=== PATIENT | female | born 1995 | race Caucasian/White ===

== ENCOUNTER → 2017-05-08 | Outpatient (CLI) | payer BC ==
--- NOTE | 2017-05-09 08:34 | USB ---
Reason for exam: clinical finding. Indicated problem(s): lump or thickening in both breasts. Physical Findings: Nurse Summary: Patient states doctor felt many lumps, discontinued mammogram per Dr. Grant (nurse kp). US Breast BILAT Right breast ultrasound includes all four quadrants, the retroareolar region and axilla. Finding demonstrates no cystic or solid lesion seen. Left breast ultrasound includes all four quadrants, the retroareolar region and axilla. Finding demonstrates a 0.6 x 0.3 x 0.6cm cystic lesion at 2 o'clock, benign. Very dense tissues are present bilaterally. No other solid or cystic lesion is seen. These results were verbally communicated with the patient and result sheet given to the patient on 05/08/17. ASSESSMENT: Benign, BI-RAD 2 RECOMMENDATION: Routine screening mammogram of both breasts at age 40. (unless clinical indication to start sooner) Manage on a clinical basis with regard to any suspicious palpable sites.
== END | disposition home or self-care (01) ==
LOC: RADMAMWWP 14:49
PROVIDERS: ATTEND Internal Medicine
DX: N63.10 Unspecified lump in the right breast, unspecified quadrant (principal); N63.20 Unspecified lump in the left breast, unspecified quadrant

== ENCOUNTER → 2017-06-11 | Outpatient (CLI) | payer BC ==
[2017-06-11 16:58] LABS: Basophils % (A) 0 %; Eosinophils % (A) 0 %; HCT 41.8 % (34.0-46.0); Lymphocytes # (A) 1.6 k/uL (1.0-4.8); Lymphocytes % (A) 22 %; MCH 30.4 pg (25.0-35.0); MCHC 33.5 g/dL (31.0-37.0); MCV 90.8 fL (80.0-100.0); Mean Platelet Volume 8.3; Monocytes # (A) 0.6 k/uL (0-1.0); Monocytes % (A) 8 %; Neutrophils # (A) 4.8 k/uL (1.3-7.7); Neutrophils % (A) 67 %; Platelet Count 160 k/uL (150-450); RDW 12.8 % (11.5-15.5); WBC 7.2 k/uL (3.8-10.6)
== END | disposition home or self-care (01) ==
LOC: PEDOP 16:11
PROVIDERS: ATTEND Internal Medicine
DX: J12.9 Viral pneumonia, unspecified (principal); J06.9 Acute upper respiratory infection, unspecified
CPT/HCPCS: 36415; 85025; 87081; 87430; 87502; 99212

== ENCOUNTER → 2017-07-17 | Outpatient (CLI) | payer BC ==
[2017-07-17 09:53] LABS: Basophils % (A) 0 %; Eosinophils % (A) 0 %; HCT 39.7 % (34.0-46.0); HGB 13.3 gm/dL (11.4-16.0); Lymphocytes # (A) 1.4 k/uL (1.0-4.8); Lymphocytes % (A) 16 %; MCHC 33.5 g/dL (31.0-37.0); MCV 89.5 fL (80.0-100.0); Mean Platelet Volume 9.1; Monocytes # (A) 0.3 k/uL (0-1.0); Monocytes % (A) 3 %; Neutrophils # (A) 7.2 k/uL (1.3-7.7); Neutrophils % (A) 80 %; Platelet Count 165 k/uL (150-450); RBC 4.44 m/uL (3.80-5.40); RDW 12.6 % (11.5-15.5)
[2017-07-17 09:58] LABS: ALT 19 U/L (9-52); AST 17 U/L (14-36); Albumin 4.3 g/dL (3.5-5.0); Alkaline Phosphatase 50 U/L (38-126); Anion Gap 12 mmol/L; Blood Urea Nitrogen 7 mg/dL (7-17); Calcium 9.4 mg/dL (8.4-10.2); Carbon Dioxide 24 mmol/L (22-30); Chloride 105 mmol/L (98-107); Cholesterol 173 mg/dL (<200); Creatine Kinase 49 U/L (30-135); Glucose 90 mg/dL (74-99); HDL Cholesterol 53 mg/dL (40-60); LDL Cholesterol,Calculated 102 mg/dL (0-99); Potassium 3.9 mmol/L (3.5-5.1); Sodium 141 mmol/L (137-145); Total Bilirubin 0.6 mg/dL (0.2-1.3); Triglycerides 92 mg/dL (<150)
[2017-07-17 10:15] LABS: HCG,Quantitative Serum <2.4 mIU/mL; T4, Free (Free Thyroxine) 0.99 ng/dL (0.78-2.19)
[2017-07-17 10:36] LABS: Erythrocyte Sedimentation Rate 3 mm/hr (0-20)
[2017-07-17 11:46] LABS: C Reactive Protein <5.0 mg/L (<10.0)
== END | disposition home or self-care (01) ==
LOC: LABWHC1 09:18
PROVIDERS: ATTEND Obstetrics & Gynecology
DX: E78.5 Hyperlipidemia, unspecified (principal); E55.9 Vitamin D deficiency, unspecified; E03.9 Hypothyroidism, unspecified; E87.8 Other disorders of electrolyte and fluid balance, not elsewhere classified; N92.6 Irregular menstruation, unspecified
CPT/HCPCS: 36415; 80053; 80061; 82306; 82550; 84439; 84443; 84702; 85025; 85652; 86140

== ENCOUNTER → 2018-11-18 | Outpatient (CLI) | payer BC ==
[2018-11-18 14:44] LABS: Basophils % (A) 0 %; Eosinophils # (A) 0.1 k/uL (0-0.7); Eosinophils % (A) 1 %; HCT 40.5 % (34.0-46.0); HGB 13.7 gm/dL (11.4-16.0); Lymphocytes # (A) 2.5 k/uL (1.0-4.8); Lymphocytes % (A) 36 %; MCH 31.5 pg (25.0-35.0); MCHC 33.8 g/dL (31.0-37.0); MCV 93.4 fL (80.0-100.0); Mean Platelet Volume 8.3; Monocytes # (A) 0.3 k/uL (0-1.0); Monocytes % (A) 5 %; Neutrophils % (A) 57 %; Platelet Count 208 k/uL (150-450); RBC 4.34 m/uL (3.80-5.40); RDW 12.3 % (11.5-15.5)
== END | disposition home or self-care (01) ==
LOC: LABPAT 13:46
PROVIDERS: ATTEND Obstetrics & Gynecology
DX: Z01.812 Encounter for preprocedural laboratory examination (principal)
CPT/HCPCS: 36415; 85025

== ENCOUNTER 2018-11-24 06:31 | Day surgery (SDC) | payer BC ==
[2018-11-19 09:08] VITALS: BMI 24.7
[~2018-11-24 06:31] MED LIST: DEXAMETHASONE SOD PHOSPHATE 10 MG/ML 1 ML VIAL IV ONE; HYDROmorphone 0.5 MG/0.5 ML SYRINGE IVP PRN; LACTATED RINGERS 1,000 ML IV SCH; LIDOCAINE 1% 20 ML VIAL (10MG/ML) FOR IV START INTRADERMA PRN; ONDANSETRON 4 MG/2 ML VIAL IVP ONE; Pre Op ABX Message 1 EACH MISC MISCELLANE ONE; SCOPOLAMINE 1.5MG/72HR PATCH TRANSDERM ONE
--- NOTE | 2018-11-24 07:00 | P.HPOB ---
History of Present Illness H&P Date: 11/24/18 Chief Complaint: hypertrophic labia 23 year old G0 presents for labialplasty due to hypertrophic labia. Review of Systems All systems: negative Constitutional: Denies chills, Denies fever Eyes: denies blurred vision, denies pain Ears, nose, mouth and throat: Denies headache, Denies sore throat Cardiovascular: Denies chest pain, Denies shortness of breath Respiratory: Denies cough Gastrointestinal: Denies abdominal pain, Denies diarrhea, Denies nausea, Denies vomiting Genitourinary: Denies dysuria, Denies hematuria Musculoskeletal: Denies myalgias Integumentary: Denies pruritus, Denies rash Neurological: Denies numbness, Denies weakness Psychiatric: Denies anxiety, Denies depression Endocrine: Denies fatigue, Denies weight change Past Medical History Past Medical History: No Reported History History of Any Multi-Drug Resistant Organisms: None Reported Past Surgical History: Appendectomy Past Anesthesia/Blood Transfusion Reactions: No Reported Reaction Past Psychological History: Anxiety Smoking Status: Never smoker Past Alcohol Use History: Occasional Past Drug Use History: None Reported - Past Family History Mother Family Medical History: No Reported History Medications and Allergies Home Medications Medication Instructions Recorded Confirmed Type Nf-Zoloft Dose Unknown 1 tab PO HS 11/19/18 11/19/18 History Allergies Allergy/AdvReac Type Severity Reaction Status Date / Time ibuprofen [From Advil] Allergy Swelling Verified 11/24/18 06:42 Exam Osteopathic Statement: *. No significant issues noted on an osteopathic structural exam other than those noted in the History and Physical/Consult. HEart: RRR Lungs: CTAB Abdomen: soft, nontender Extremeties: neg tanner's Assessment and Plan (1) Hypertrophy of labia Current Visit: Yes Status: Acute Code(s): N90.60 - UNSPECIFIED HYPERTROPHY OF VULVA SNOMED Code(s): 17756579 Plan: 1. labialplasty
[2018-11-24 07:08] VITALS: RESP 16
[2018-11-24 07:09] LABS: Glucose,Whole Blood 87 mg/dL (75-99)
[2018-11-24] MEDS ORDERED: MIDAZOLAM 2 MG/2 ML VIAL ONE (07:21)
[2018-11-24] MEDS ORDERED: LIDOCAINE 1% INJ 10MG/ML (20 ML MDV) ONE (07:21)
[2018-11-24] MEDS ORDERED: KETOROLAC 30 MG/ML 1 ML VIAL ONE (07:21)
[2018-11-24] MEDS ORDERED: PROPOFOL 10 MG/ML 20 ML VIAL IV ONE (07:21)
[2018-11-24] MEDS ORDERED: fentaNYL (PF) 50 MCG/ML 2 ML AMP ONE (07:21)
[2018-11-24] MEDS ORDERED: LIDOCAINE 1%-EPI 1:100,000 30 ML VIAL SQ ONE ×2 (07:43)
[2018-11-24] MEDS ORDERED: LACTATED RINGERS 1,000 ML IV ONE ×2 (07:55)
[2018-11-24 08:12] VITALS: TEMP 97
--- NOTE | 2018-11-24 08:13 | P.OP ---
Date of Procedure: 11/24/18 Preoperative Diagnosis: 1. Labial hypertrophy Postoperative Diagnosis: 1. Labial hypertrophy Procedure(s) Performed: Labioplasty Anesthesia: MAC Surgeon: Karen Osorio Estimated Blood Loss (ml): 2 IV fluids (ml): 900 Pathology: other (Portion of each labia) Condition: stable Disposition: PACU Description of Procedure: Patient is taken the operating room where general anesthesia was obtained without difficulty. She is prepped draped in normal sterile fashion dorsal lithotomy position, legs placed in candycane stirrups. First a marked triangular area along each peak of the labia. 1% lidocaine with epinephrine was injected along these lines. I then used the 10 blade to cut off these marked areas. 3-0 Vicryl was used to bring the edges back together of both labia in a running manner. Hemostasis was assured. Patient tolerated procedure well, sponge and instrument counts correct 2. She was taken to recovery in stable condition.
[2018-11-24 09:17] VITALS: BP 117/59; PULSE 66
== END 2018-11-24 09:23 | disposition home or self-care (01) ==
LOC: OR 06:31
PROVIDERS: ATTEND Obstetrics & Gynecology
DX: N90.60 Unspecified hypertrophy of vulva (principal); F41.9 Anxiety disorder, unspecified; Z79.899 Other long term (current) drug therapy; Z88.6 Allergy status to analgesic agent; Z90.49 Acquired absence of other specified parts of digestive tract
CPT/HCPCS: 56620; 88302; 81025; J2250; J1100; J2405; J2001; J3010; J1885; J2704

== ENCOUNTER → 2022-09-24 | Outpatient (CLI) | payer BC ==
[2022-09-24 17:39] LABS: HCT 42.4 % (37.2-46.3); HGB 13.8 d/dL (12.0-15.0); MCH 30.3 pg (27.0-32.0); MCHC 32.5 d/dL (32.0-37.0); Mean Platelet Volume 12.3 FL (9.5-12.2); NRBC Per 100 WBC 0 X 10*3/uL (0.00-0.01); Platelet Count 195 X 10*3/uL (140-440); RBC 4.56 X 10*6/uL (4.10-5.20); RDW 12.2 % (11.5-14.5); WBC 5.96 X 10*3/uL (4.50-10.00)
[2022-09-24 17:40] LABS: Basophils # (A) 0.02 X 10*3/uL (0.00-0.10); Basophils % (A) 0.3 %; Eosinophils # (A) 0.07 X 10*3/uL (0.04-0.35); Eosinophils % (A) 1.2 %; Lymphocytes # (A) 1.83 X 10*3/uL (0.90-5.00); Lymphocytes % (A) 30.7 %; Monocytes # (A) 0.36 X 10*3/uL (0.20-1.00); Neutrophils # (A) 3.66 X 10*3/uL (1.80-7.70); Neutrophils % (A) 61.5 %
[2022-09-24 18:02] LABS: Erythrocyte Sedimentation Rate 2 mm/Hr (0-20)
[2022-09-25 02:18] LABS: ALT 14 U/L (8-44); AST 19 U/L (13-35); Albumin 4.5 d/dL (3.8-4.9); Albumin/Globulin Ratio 1.88 Ratio (1.60-3.17); Alkaline Phosphatase 49 U/L (41-126); BUN/Creat Ratio 12.57 Ratio (12.00-20.00); Blood Urea Nitrogen 8.8 mg/dL (9.0-27.0); C Reactive Protein <0.30 mg/dL (0.00-0.80); Calcium 9.4 mg/dL (8.7-10.3); Carbon Dioxide 24.8 mmol/L (21.6-31.8); Chloride 104 mmol/L (96-109); Chol/HDL Ratio 2.65 Ratio; Creatine Kinase 80 U/L (26-186); Follicle Stimulating Hormone 4.1 mIU/mL; Globulin 2.4 d/dL (1.6-3.3); Glucose 86 mg/dL (70-110); LDL Cholesterol,Calculated 70.1 mg/dL (0.0-131.0); Potassium 4.5 mmol/L (3.5-5.5); Sodium 141 mmol/L (135-145); Total Bilirubin 0.3 mg/dL (0.3-1.2); Total Protein 6.9 d/dL (6.2-8.2)
[2022-09-25 18:38] LABS: Hepatitis A Antibody IgM Nonreactive; Hepatitis B Core IgM Nonreactive; Hepatitis B Surface Antigen Nonreactive; Hepatitis C IgG Antibody Nonreactive
== END | disposition home or self-care (01) ==
LOC: LABWHC1 08:52
PROVIDERS: ATTEND Internal Medicine
DX: Z00.00 Encounter for general adult medical examination without abnormal findings (principal); D64.9 Anemia, unspecified; E87.8 Other disorders of electrolyte and fluid balance, not elsewhere classified; E78.5 Hyperlipidemia, unspecified; E55.9 Vitamin D deficiency, unspecified; L68.0 Hirsutism; E34.9 Endocrine disorder, unspecified
CPT/HCPCS: 36415; 80053; 80061; 80074; 82306; 82550; 82672; 83001; 83002; 84144; 84146; 84403; 84443; 85025; 85652; 86140

== ENCOUNTER 2024-10-06 06:00 | Inpatient (IN) | payer BC ==
[2024-10-06] MEDS ORDERED: TRANEXAMIC 1,000 MG/100ML-NACL 1,000 MG in EMPTY BAG 1 BAG IV PRN (06:33)
[2024-10-06] MEDS ORDERED: METHYLERGONOVINE 0.2 MG/ML 1 ML AMP IM PRN (06:33)
[2024-10-06] MEDS ORDERED: TERBUTALINE 1 MG/ML VIAL SQ PRN (06:33)
[2024-10-06] MEDS ORDERED: OXYTOCIN 10 UNIT/ML 1 ML VIAL IM PRN (06:33)
[2024-10-06] MEDS ORDERED: CARBOPROST TROMETHAMINE 250 MCG/ML 1 ML AMP IM PRN (06:33)
[2024-10-06] MEDS: OXYTOCIN 30 UNITS/500 ML NS 30 UNIT in SALINE 1 500ML.BAG IV SCH (06:51)
[2024-10-06] MEDS: LACTATED RINGERS 1,000 ML IV SCH (06:51)
[2024-10-06 07:01] LABS: Basophils # (A) 0.02 10*3/uL (0.00-0.10); Basophils % (A) 0.2 %; Eosinophils # (A) 0.04 10*3/uL (0.04-0.35); Eosinophils % (A) 0.4 %; HCT 33.6 % (37.2-46.3); HGB 11.2 g/dL (12.0-15.0); Lymphocytes # (A) 1.93 10*3/uL (0.90-5.00); Lymphocytes % (A) 20.0 %; MCH 28.9 pg (27.0-32.0); MCHC 33.3 g/dL (32.0-37.0); MCV 86.8 fL (80.0-97.0); Monocytes # (A) 0.60 10*3/uL (0.20-1.00); Monocytes % (A) 6.2 %; Neutrophils # (A) 7.00 10*3/uL (1.80-7.70); Neutrophils % (A) 72.7 %; Platelet Count 154 10*3/uL (140-440); RBC 3.87 10*6/uL (4.10-5.20); RDW 13.2 % (11.5-14.5); WBC 9.64 10*3/uL (4.50-10.00)
[2024-10-06] MEDS: CALCIUM CARBONATE 500 MG CHEWABLE PO PRN (07:49)
--- NOTE | 2024-10-06 08:47 | P.HPOB ---
History of Present Illness H&P Date: 10/06/24 Chief Complaint: 39-0/7 weeks, elective induction The patient is a 28-year-old 2 para 0-0-1-0 admitted at 39-0/7 weeks as established by last menstrual period and confirmed by second trimester ultrasound. She is admitted for elective induction of labor with all signs reassuring, category 1 heart rate tracing. Her has been entirely uncomplicated and group B strep status is negative. Obstetrical history: 2 para 0-0-1-0 with current statistics listed in history of present illness. EDC of 10/13/2024 was established by last menstrual period and confirmed by second trimester ultrasound. Laboratory workup demonstrates a blood type of A+ with a negative antibody screen. Rubella status is immune. The remainder of the laboratory workup was within normal limits. 1 hour Glucola was normal and group B strep status is negative. Gynecologic history: Unremarkable with no history of any infections to include STDs. Review of Systems Review of systems is confined to history of present illness. Past Medical History Past Medical History: No Reported History History of Any Multi-Drug Resistant Organisms: None Reported Past Surgical History: Appendectomy Past Psychological History: No Psychological Hx Reported Smoking Status: Never smoker Past Alcohol Use History: None Reported Past Drug Use History: None Reported Medications and Allergies Home Medications Medication Instructions Recorded Confirmed Type Vit No.179/Iron/Folic 1 each PO DAILY 10/06/24 10/06/24 History [ Tablet] Allergies Allergy/AdvReac Type Severity Reaction Status Date / Time amoxicillin Allergy Rash/Hives Verified 10/06/24 06:28 ibuprofen [From Advil] Allergy Swelling Verified 11/24/18 06:42 Exam Vital Signs Temp Pulse Resp BP Pulse Ox 10/06/24 06:18 97.7 F 101 H 16 112/84 97 Intake and Output 10/05/24 10/06/24 10/06/24 22:59 06:59 14:59 Other: Weight 79.832 kg In general, this is a well-developed, well-nourished white female in no acute distress. Her heart has a regular rhythm and rate without murmur. Her lungs clear to auscultation bilaterally in all hill. Her abdomen is gravid, nondistended, has normal active bowel sounds, soft, nontender, and without any palpable masses aside from the uterine fundus. Her extremities are without any cyanosis, clubbing, or edema and are nontender to palpation bilaterally. Digital cervical examination demonstrates her cervix to be approximately 2 cm dilated, 50% effaced, with the vertex and presentation at -2 station. Artificial rupture of membranes is carried out demonstrating clear fluid. Results Result Diagrams: 10/06/24 06:45 Abnormal Lab Results - Last 24 Hours (Table) 10/06/24 Range/Units 06:45 RBC 3.87 L (4.10-5.20) 10*6/uL Hgb 11.2 L (12.0-15.0) g/dL Hct 33.6 L (37.2-46.3) % MPV 12.5 H (9.5-12.2) fL Immature Gran # 0.05 H (0.00-0.04) 10*3/uL Assessment and Plan (1) Term Current Visit: Yes Status: Acute Code(s): Z34.90 - ENCNTR FOR SUPRVSN OF NORMAL , UNSP, UNSP TRIMESTER SNOMED Code(s): 90699937 Plan: The patient is admitted for elective induction of labor. Pitocin augmentation has been started and she has undergone artificial rupture of membranes. She will have close maternal and surveillance and expectant management will be practiced. She is a good candidate for either IV or epidural analgesia, whichever she may choose.
[2024-10-06] MEDS: BUTORPHANOL 1 MG/ML 1 ML VIAL IV PRN (11:20)
[2024-10-06] MEDS ORDERED: fentaNYL (PF) 50 MCG/ML 5 ML AMP ONE (13:33)
[2024-10-06] MEDS ORDERED: ROPIVACAINE 5 MG/ML 30 ML VIAL ONE (13:33)
[2024-10-06] MEDS ORDERED: SODIUM CHLORIDE 0.9% 250 ML BAG ONE (13:33)
[2024-10-06] MEDS: LIDOCAINE 0.5% (PF) 5 MG/ML (50 ML SDV) SQ PRN (20:20)
[2024-10-06] MEDS ORDERED: diphenhydrAMINE 25 MG CAP PO PRN (20:33)
[2024-10-06] MEDS ORDERED: LANOLIN CREAM 1 GM TUBE TOPICAL PRN (20:33)
[2024-10-06] MEDS ORDERED: diphenhydrAMINE 50 MG/ML 1 ML VIAL IVP PRN ×2 (20:33)
[2024-10-06] MEDS ORDERED: ZOLPIDEM 5 MG TAB PO PRN (20:33)
[2024-10-06] MEDS ORDERED: SIMETHICONE 80 MG CHEWABLE PO PRN (20:33)
[2024-10-06] MEDS ORDERED: HYDROCORTISONE 2.5% RECTAL CREAM 30 GM TUBE RECTAL PRN (20:33)
--- NOTE | 2024-10-06 20:36 | P.PROBDLV ---
Vaginal Delivery Note - . Vaginal Delivery Note: The patient is a 28-year-old 2 para 0-0-1-0 admitted at 39-0/7 weeks by good dating parameters. She is admitted for elective induction with all signs reassuring. Her has been entirely uncomplicated and group B strep status is negative. On labor and delivery, she had Pitocin augmentation started and underwent artificial rupture of membranes for clear fluid. Around the onset of the active phase of labor, she had an epidural catheter placed for analgesia. She progressed throughout the day to complete and then pushed over the course of approximately 30 to 40 minutes to a normal spontaneous vaginal delivery of a viable 8 pound 12.6 ounce baby boy with Apgars of 9 at 1 minute and 9 at 5 minutes delivered in the direct occiput anterior position. The placenta was delivered spontaneously, intact, and grossly normal with a grossly normal, centr ally inserted three-vessel cord. A very small second-degree midline episiotomy was cut for delivery as it was quite apparent that she may have had a periclitoral tear if not directed downward. This was repaired in standard fashion without any extension noted using 3-0 chromic catgut without difficulty. Estimated blood loss for the case was approximately 150 mL. There were no complications. All sponge, instrument, and needle counts were correct. Both mother and are resting comfortably in recovery.
[2024-10-06] MEDS ORDERED: OXYTOCIN 30 UNITS/500 ML NS 30 UNIT in SALINE 1 500ML.BAG IV SCH (20:45)
[2024-10-06] MEDS: BENZOCAINE/MENTHOL SPRAY 1 GM/SPRAY AEROSOL TOPICAL PRN (22:12)
[2024-10-06] MEDS: IBUPROFEN 800 MG TAB PO PRN (23:57)
[2024-10-07 06:49] LABS: Basophils # (A) 0.02 10*3/uL (0.00-0.10); Basophils % (A) 0.1 %; Eosinophils # (A) 0.01 10*3/uL (0.04-0.35); Eosinophils % (A) 0.1 %; HCT 33.4 % (37.2-46.3); HGB 10.9 g/dL (12.0-15.0); Lymphocytes # (A) 1.98 10*3/uL (0.90-5.00); Lymphocytes % (A) 12.9 %; MCH 28.5 pg (27.0-32.0); MCHC 32.6 g/dL (32.0-37.0); MCV 87.4 fL (80.0-97.0); Monocytes # (A) 0.95 10*3/uL (0.20-1.00); Monocytes % (A) 6.2 %; Neutrophils # (A) 12.33 10*3/uL (1.80-7.70); Neutrophils % (A) 80.3 %; Platelet Count 173 10*3/uL (140-440); RBC 3.82 10*6/uL (4.10-5.20); RDW 13.3 % (11.5-14.5); WBC 15.35 10*3/uL (4.50-10.00)
[2024-10-07] MEDS: SENNOSIDES-DOCUSATE SODIUM 1 EACH TAB PO SCH (08:42)
[2024-10-07] MEDS: ACETAMINOPHEN TAB 500 MG TAB PO PRN (08:42)
--- NOTE | 2024-10-07 08:57 | P.DS ---
Providers Date of admission: 10/06/24 06:10 Expected date of discharge: 10/07/24 Attending physician: Vinh Lopez Primary care physician: Stated None - Discharge Diagnosis(es) (1) Term Current Visit: Yes Status: Acute (2) Normal spontaneous vaginal delivery Current Visit: Yes Status: Acute Hospital Course: The patient is a 28-year-old 2 para 0-0-1-0 admitted at 39-0/7 weeks by good dating parameters. She is admitted for elective induction of labor with all signs reassuring, category 1 heart rate tracing. Her was uncomplicated and group B strep status is negative. On labor and delivery, she had Pitocin started followed by artificial rupture of membranes for clear fluid. She may progress to the active phase of labor and had an epidural catheter placed for analgesia. She then made steady progress throughout the day to complete and ultimately pushed to a normal spontaneous vaginal delivery of a viable 8 pound 12.6 ounce baby boy with Apgars of 9 at 1 minute and 9 at 5 minutes. Her course was unremarkable with vital signs remaining stable and her temperature was afebrile throughout. She is deemed stable for discharge on day #1 and was discharged home to follow-up in the office in 6 weeks time routinely. Discharge instructions included calling for any significantly increased bleeding or foul-smelling lochia, significantly increased fever abdominal pain, perineal complaints, breast complaints, or anything else that concerned her. She was additionally instructed to have nothing in the vagina for at least 6 weeks time to include intercourse. She understood her instructions and agrees to follow-up as noted above. Discharge medications included continued vitamins as she has opted to breast- feed. She was otherwise to use [id number] analgesic pain medications as needed. Maternal blood type is A+ and rubella status is immune. Procedures: #1. Pitocin induction #2. Artificial rupture of membranes #3. Epidural analgesia #4. Normal spontaneous vaginal delivery #5. Second-degree midline episiotomy and repair Patient Condition at Discharge: Stable Plan - Discharge Summary New Discharge Prescriptions: No Action Vit No.179/Iron/Folic [ Tablet] 1 each PO DAILY Discharge Medication List Vit No.179/Iron/Folic [ Tablet] 1 each PO DAILY 10/06/24 [History] Follow up Appointment(s)/Referral(s): Vinh Lopez MD [STAFF PHYSICIAN] - 11/18/24 2:45 pm Discharge Disposition: HOME SELF-CARE
[2024-10-07 10:07] VITALS: RESP 18
[2024-10-07 16:57] VITALS: BP 110/73; PULSE 89; TEMP 98
== END 2024-10-07 20:30 | disposition home or self-care (01) | DRG 807 ==
LOC: 4FBP 06:10
PROVIDERS: ADMIT Obstetrics & Gynecology; ATTEND Obstetrics & Gynecology
PROC: 10E0XZZ Delivery of Products of Conception, External Approach (ICD-10-PCS; principal; 2024-10-06)
PROC: 10907ZC Drainage of Amniotic Fluid, Therapeutic from Products of Conception, Via Natural or Artificial Opening (ICD-10-PCS; 2024-10-06)
PROC: 3E033VJ Introduction of Other Hormone into Peripheral Vein, Percutaneous Approach (ICD-10-PCS; 2024-10-06)
PROC: 0W8NXZZ Division of Female Perineum, External Approach (ICD-10-PCS; 2024-10-06)
DX: O62.3 Precipitate labor (principal); Z37.0 Single live birth; Z3A.39 39 weeks gestation of pregnancy; Z88.6 Allergy status to analgesic agent; Z88.1 Allergy status to other antibiotic agents; Z87.19 Personal history of other diseases of the digestive system
CPT/HCPCS: 85025; 86850; 86900; 86901